=== PATIENT | female | born 1980 | race Caucasian/White ===

== ENCOUNTER 2016-10-17 18:08 | Emergency (ER) | payer OTHER, BC ==
[2016-10-17 18:12] VITALS: BP 123/80; PULSE 101; TEMP 99; BMI 30.2
--- NOTE | 2016-10-17 18:35 | PDOC ---
History of Present Illness - General Chief Complaint: Injury Stated Complaint: INJURY Time Seen by Provider: 10/17/16 18:25 History Source: Patient Exam Limitations: No Limitations - History of Present Illness Initial Comments: 10/17/16 18:29 36 yr female no medical history states a child at work bumped into her left great toe at work causing bleeding and pain. 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 Pt had some bleeding under the left great toe that has since stopped. Past History - Past Medical History Allergies/Adverse Reactions: Allergies Allergy/AdvReac Type Severity Reaction Status Date / Time Penicillins Allergy unknown Verified 10/17/16 18:12 Home Medications: Ambulatory Orders Ibuprofen [Motrin -] 600 mg PO TID PRN #21 tablet 10/17/16 Other medical history: DENIES - Immunization History Immunization Up to Date: Yes - Psycho/Social/Smoking Cessation Hx Anxiety: No Suicidal Ideation: No Smoking Status: No Smoking History: Never smoked Have you smoked in the past 12 months: No Number of Cigarettes Smoked Daily: 0 Hx Alcohol Use: Yes (SOCIAL) Drug/Substance Use Hx: No Substance Use Type: None Trauma Specific PMHX - Complaint Specific PMHX Arthritis: No Back Injury: No Neck Injury: No Hx Sacro Iliac Joint Dysfunction: No Review of Systems - Review of Systems Able to Perform ROS?: Yes Is the patient limited [place] proficient: No Constitutional: No: Symptoms Reported, Unintentional Wgt. Loss HEENTM: No: Symptoms Reported Respiratory: No: Symptoms reported Cardiac (ROS): No: Symptoms Reported ABD/GI: No: Symptoms Reported : No: Symptoms Reported Musculoskeletal: Yes: See HPI *Physical Exam - Vital Signs Last Vital Signs Temp Pulse Resp BP Pulse Ox 99.0 F 101 H 20 123/80 98 10/17/16 18:09 10/17/16 18:09 10/17/16 18:09 10/17/16 18:09 10/17/16 18:09 - Physical Exam General Appearance: Yes: Nourished, Appropriately Dressed HEENT: positive: EOMI, RAYMOND, Normal ENT Inspection, TMs Normal, Pharynx Normal Neck: positive: Supple Respiratory/Chest: positive: Lungs Clear, Normal Breath Sounds Cardiovascular: positive: Regular Rhythm, Regular Rate Gastrointestinal/Abdominal: positive: Normal Bowel Sounds, Soft Extremity: positive: Normal Capillary Refill, Tender (top of the left great toe tender to touch at the base of the nail, cuticle intact nail intact, dried blood to the medial aspect of the nail ) Integumentary: positive: Normal Color, Dry, Warm Neurologic: positive: Fully Oriented, Alert, Normal Mood/Affect, Normal Response , Motor Strength 5/5 Procedures - Splinting Progress: 10/17/16 19:07 hard sole shoe - Additional Procedures Progress: 10/17/16 18:37 Medical Decision Making - Medical Decision Making 10/17/16 18:38 cc: injured left great toe will xray to r/o fracture bacitracin and bandaid hard sole shoe follow up with the orthopedist 10/17/16 18:40 10/17/16 19:20 preliminary xray is negative, however I have discussed that pt needs to follow up with the neuroscientist. 10/17/16 19:24 10/18/16 16:00 10/18/16 16:08 *DC/Admit/Observation/Transfer Diagnosis at time of Disposition: Contusion, toe Qualifiers: Encounter type: initial encounter Toe: great toe Damage to nail status: with damage Laterality: left Qualified Code(s): S90.212A - Contusion of left great toe with damage to nail, initial encounter - Discharge Dispostion Disposition: HOME Condition at time of disposition: Good - Prescriptions Prescriptions: Ibuprofen [Motrin -] 600 mg PO TID PRN #21 tablet PRN Reason: Pain - Referrals Referrals: Patricia Lozano [Primary Care Provider] - Michael Gayle MD [Staff Physician] - - Patient Instructions Additional Instructions: apply ice every 2hrs for 20 minutes for the next 2 days while awake take motrin 800mg every 6hrs for pain use the hard sole shoe while awake remove to sleep and bathe soak toe in warm soapy water 3-4 times a day for 15 minutes, dry completely and place bacitracin and bandaid to the area of bleeding follow with the neuroscientist for follow up next week if symptoms worsen or persist
--- NOTE | 2016-10-18 16:12 | PDOC ---
Patient Follow-up (Call Back) - Post ED Follow - Up Chief Complaint: toe injury Condition at time of discharge: Good Disposition at time of original discharge: HOME Reason for Call Back: Radiology (linear lucency may be fracture of great toe . message left, pt needs po antibitoics as pt has open fracture .) - Disposition Additional Instructions/Notes: spoke with pt. will place on doxycycline (pt allergic to PCN) and will f/u with the poultry scientist.
== END 2016-10-17 19:30 | disposition home or self-care (01) ==
LOC: JERFT 18:08
DX: S90.212A Contusion of left great toe with damage to nail, initial encounter (principal); W50.0XXA Accidental hit or strike by another person, initial encounter; Y93.89 Activity, other specified; Y92.218 Other school as the place of occurrence of the external cause; Y99.0 Civilian activity done for income or pay
CPT/HCPCS: 73660-TC; 84703; 99281-25

== ENCOUNTER 2021-05-10 18:28 | Emergency (ER) | payer BC ==
[2021-05-10 18:42] VITALS: BP 122/76; PULSE 98; TEMP 98.9; BMI 27.3
== END 2021-05-10 20:11 | disposition home or self-care (01) ==
LOC: FER 18:28
DX: S52.121A Displaced fracture of head of right radius, initial encounter for closed fracture (principal); W00.0XXA Fall on same level due to ice and snow, initial encounter
CPT/HCPCS: 73070-TC-LT-FY; 99283-25

== ENCOUNTER 2021-10-17 19:36 | Emergency (ER) | payer BC ==
[2021-10-17 19:45] VITALS: BP 116/77; PULSE 98; TEMP 98.6; BMI 27.3
[2021-10-17] MEDS ORDERED: CIPROFLOXACIN 250 MG TABLET (RESTRICTED TO ID) PO STA (19:54)
[2021-10-17] MEDS ORDERED: CIPROFLOXACIN 250 MG TABLET (RESTRICTED TO ID) PO ONE (19:55)
[2021-10-17] MEDS ORDERED: DIPHTH,PERTUSS(ACELL),TET 0.5 ML DISP.SYRIN IM ONE ×2 (19:55)
== END 2021-10-17 20:27 | disposition home or self-care (01) ==
LOC: FER 19:36
PROC: 3E0234Z Introduction of Serum, Toxoid and Vaccine into Muscle, Percutaneous Approach (ICD-10-PCS; principal; 2021-10-17)
DX: S91.331A Puncture wound without foreign body, right foot, initial encounter (principal); W45.0XXA Nail entering through skin, initial encounter
CPT/HCPCS: 73630-TC-RT-FY; 90715; 99284-25

== ENCOUNTER 2021-11-18 09:15 | Emergency (ER) | payer BC ==
[2021-11-18] MEDS ORDERED: DEXAMETHASONE 4 MG TABLET (FP) PO ONE (09:24)
[2021-11-18] MEDS ORDERED: ACETAMINOPHEN 325 MG TABLET (FP) PO ONE (09:24)
[2021-11-18] MEDS ORDERED: ONDANSETRON *ODT* 4 MG TABLET SL ONE (09:25)
[2021-11-18] MEDS ORDERED: ACETAMINOPHEN 325 MG TABLET (FP) ONE (09:32)
[2021-11-18] MEDS ORDERED: ONDANSETRON *ODT* 4 MG TABLET ONE (09:33)
[2021-11-18] MEDS ORDERED: DEXAMETHASONE SOD PHOSPHATE 10 MG/1 ML VIAL ONE (09:33)
[2021-11-18 09:43] VITALS: BP 119/70; PULSE 98; TEMP 100; BMI 27.3
== END 2021-11-18 09:50 | disposition home or self-care (01) ==
LOC: FER 09:15
DX: B34.9 Viral infection, unspecified (principal)
CPT/HCPCS: 0241U-QW; 87633; 99283-25; Q0162

== ENCOUNTER 2021-11-22 05:26 | Emergency (ER) | payer BC ==
[2021-11-22] MEDS ORDERED: ALBUTEROL SO4 0.083% IH SOL 2.5 MG/3 ML VIAL.NEB. NEB ONE (05:52)
[2021-11-22] MEDS ORDERED: ALBUTEROL SO4 0.042% IH SOL 1.25 MG/3 ML VIAL.NEB NEB ONE (05:52)
[2021-11-22 05:53] VITALS: BP 110/70; PULSE 88; TEMP 98; BMI 27.6
[2021-11-22] MEDS ORDERED: guaiFENesin/CODEINE 10 ML UNIT-DOSE CUPS ONE (06:06)
[2021-11-22] MEDS ORDERED: guaiFENesin/CODEINE 10 ML UNIT-DOSE CUPS PO ONE (06:06)
== END 2021-11-22 06:37 | disposition home or self-care (01) ==
LOC: FER 05:26
PROC: 3E0F7GC Introduction of Other Therapeutic Substance into Respiratory Tract, Via Natural or Artificial Opening (ICD-10-PCS; principal; 2021-11-22)
DX: J98.01 Acute bronchospasm (principal); J06.9 Acute upper respiratory infection, unspecified
CPT/HCPCS: 71046-TC-FY; 99283-25

== ENCOUNTER 2023-08-25 18:36 | Emergency (ER) | payer BC ==
[2023-08-25 18:56] VITALS: TEMP 97.5; BMI 30.2
[2023-08-25] MEDS ORDERED: FAMOTIDINE 20 MG/50 ML IVPB 20 MG/50 ML MG IVPB ONE (20:02)
[2023-08-25] MEDS ORDERED: ACETAMINOPHEN INJECTION 100 ML IVPB ONE (20:02)
[2023-08-25 20:28] LABS: HEMATOCRIT 38.9 % (32.4-45.2); HEMOGLOBIN 13.2 GM/dL (10.7-15.3); MCH 30.8 pg (25.7-33.7); MCHC 33.9 g/dl (32.0-36.0); MEAN CELL VOLUME 91.1 fl (80-96); MEAN PLT VOLUME 8.2 fl (7.5-11.1); PLATELET COUNT 245 10^3/uL (134-434); RBC 4.27 M/mm3 (3.60-5.2); RDW 13.8 % (11.6-15.6); WHITE BLOOD COUNT 16.2 K/mm3 (4.0-10.0)
[2023-08-25] MEDS: ACETAMINOPHEN 1000 MG/100 ML BAG IVPB ONE (20:31)
[2023-08-25] MEDS: FAMOTIDINE 20 MG/50 ML IVPB 20 MG/50 ML MG IVPB ONE (20:31)
[2023-08-25 20:33] VITALS: RESP 15
[2023-08-25 20:44] LABS: POTASSIUM 4.5 mmol/L (3.5-5.1)
[2023-08-25 20:46] LABS: BLOOD UREA NITROGEN 18.7 mg/dL (7-18); CALCIUM 8.3 mg/dL (8.5-10.1)
[2023-08-25 20:47] LABS: ALBUMIN 3.5 g/dl (3.4-5.0)
[2023-08-25 20:50] LABS: CREATININE 0.9 mg/dL (0.55-1.3)
[2023-08-25 20:51] LABS: BILIRUBIN,TOTAL 0.9 mg/dL (0.2-1); TOT PROT 6.8 g/dl (6.4-8.2)
[2023-08-25 21:26] LABS: ANISOCYTOSIS 0; MACROCYTOSIS 0
[2023-08-25] MEDS ORDERED: MAGNESIUM SULFATE IN WATER 2 GM/50 ML IVPB IVPB ONE (21:40)
[2023-08-25] MEDS: MAGNESIUM SULFATE IN WATER 2 GM/50 ML IVPB IVPB ONE (22:11)
[2023-08-25] MEDS ORDERED: METOCLOPRAMIDE HCL INJECTION 10 MG/2 ML VIAL ONE (22:46)
[2023-08-25] MEDS: METOCLOPRAMIDE HCL INJECTION 10 MG/2 ML VIAL IVPUSH ONE (22:52)
[2023-08-25 23:27] VITALS: BP 97/54; PULSE 77
== END 2023-08-25 23:27 | disposition home or self-care (01) ==
LOC: JER 18:36
PROC: 3E033GC Introduction of Other Therapeutic Substance into Peripheral Vein, Percutaneous Approach (ICD-10-PCS; principal; 2023-08-25)
PROC: 3E033GC Introduction of Other Therapeutic Substance into Peripheral Vein, Percutaneous Approach (ICD-10-PCS; 2023-08-25)
PROC: 3E030GC Introduction of Other Therapeutic Substance into Peripheral Vein, Open Approach (ICD-10-PCS; 2023-08-25)
PROC: 3E030GC Introduction of Other Therapeutic Substance into Peripheral Vein, Open Approach (ICD-10-PCS; 2023-08-25)
DX: R11.2 Nausea with vomiting, unspecified (principal); R10.30 Lower abdominal pain, unspecified; R42 Dizziness and giddiness; R68.83 Chills (without fever); R06.02 Shortness of breath; Z20.822 Contact with and (suspected) exposure to COVID-19
CPT/HCPCS: 0241U-QW; 36415; 70450-TC; 74176-TC; 80053; 83690; 83735; 84484; 85025; 93005; 93010; 99285-25; J0131